=== PATIENT | female | born 1985 | race African-American/Black ===

== ENCOUNTER 2019-05-15 12:42 | Emergency (ER) | payer SELFPAY ==
[2019-05-15] MEDS ORDERED: MOTRIN 600 MG PO ONE (12:49)
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
[2019-05-15] MEDS ORDERED: MOTRIN 600 MG ONE (13:02)
[2019-05-15] MEDS ORDERED: EMLA Cream 5 GM TP ONE ×2 (13:20→13:23)
[2019-05-15] MEDS ORDERED: Adacel Vial IM ONE ×2 (13:20→13:24)
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
[2019-05-15 14:42] VITALS: BP 119/73; PULSE 87; O2SAT 97
== END 2019-05-15 14:42 | disposition home or self-care (01) ==
LOC: ED 12:42
DX: S61.421A Laceration with foreign body of right hand, initial encounter (principal); V40.5XXA Car driver injured in collision with pedestrian or animal in traffic accident, initial encounter
CPT/HCPCS: 73130; 90471; 90715; 99284; A9270-GY